=== PATIENT | male | born 1945 | race Caucasian/White ===

== ENCOUNTER → 2020-08-14 | Day surgery (SDC) | payer MEDICARE, OTHER ==
[2020-08-09 11:37] LABS: BASOPHILS # (AUTO) 0.1 (0.0-0.1); BASOPHILS % 0.7 % (0.0-1.0); EOSINOPHILS # (AUTO) 0.2 (0.0-0.4); EOSINOPHILS % 3.2 % (0.0-6.0); HEMATOCRIT 37.9 % (38.2-49.6); HEMOGLOBIN 12.6 g/dL (14.0-18.0); LYMPHOCYTES # (AUTO) 2.1 (1.0-3.2); LYMPHOCYTES % 29.8 % (18.0-39.1); MEAN CORPUSCULAR HEMOGLOBIN 31.6 pg (28-32); MEAN CORPUSCULAR HGB CONC 33.2 g/dL (31-35); MONOCYTES # (AUTO) 0.8 (0.2-0.8); MONOCYTES % 11.1 % (4.4-11.3); NEUTROPHILS # (AUTO) 3.8 (2.1-6.9); NEUTROPHILS % 54.9 % (38.7-80.0); PLATELET COUNT 219 x10e3/uL (140-360); RED BLOOD COUNT 3.99 x10e6/uL (4.3-5.7); RED CELL DISTRIBUTION WIDTH 12.7 % (11.7-14.4)
[2020-08-09 12:17] LABS: ALANINE AMINOTRANSFERASE 24 IU/L (0-55); ALBUMIN 4.1 g/dL (3.5-5.0); ALBUMIN/GLOBULIN RATIO 1.6 (0.8-2.0); ALKALINE PHOSPHATASE 57 IU/L (40-150); ANION GAP 12.5 mmol/L (8-16); BLOOD UREA NITROGEN 25 mg/dL (7-26); BUN/CREATININE RATIO 22 (6-25); CALCIUM 9.2 mg/dL (8.4-10.2); CARBON DIOXIDE 24 mmol/L (22-29); CHLORIDE 109 mmol/L (98-107); CREATININE, SERUM 1.12 mg/dL (0.72-1.25); EST GLOMERULAR FILTRATION RATE > 60 ML/MIN (60-); GLUCOSE 94 mg/dL (74-118); POTASSIUM 4.5 mmol/L (3.5-5.1); SODIUM 141 mmol/L (136-145)
[~2020-08-14] VITALS: Ht 180.3 cm; Wt 81.6 kg
[2020-08-14] VITALS (7 sets, daily range): BP systolic 100–116; BP diastolic 63–80
[~2020-08-14] MED LIST: ALPRAZOLAM 0.5 MG TAB ONE; AREDS 2 PO; ASPIRIN EC81 MG PO; DIPHENHYDRAMINE HCL 25 MG CAP ONE; FENTANYL CITRATE/PF 100MCG/2 ML INJ ONE; FOSAMAX70 MG PO; HEPARIN SOD (PORCINE) 1000 UNIT/ML 30ML ONE; HEPARIN SOD/SOD CHLORIDE 2,000 ML ONE; IOPAMIDOL 370 MG/ML 200 ML INFUS..BTL INJ ONE; LIDOCAINE HCL 2% LOCAL 20 ML VIAL ONE; LIPITOR10 MG PO; LORATADINE10 MG PO; LOSARTAN POTASS25 MG PO; MIDAZOLAM HCL 2 MG/2 ML VIAL ONE; OYSTER SHELL C1 EA12 PO; SODIUM CHLORIDE 0.9% 1000ML 1,000 ML ONE; VERAPAMIL HCL 2.5 MG/ML 2 ML VIAL ONE
--- NOTE | 2020-08-14 14:34 | Operative Report ---
DATE OF PROCEDURE: 08/14/2020 SURGEON: Jose Luis Grant MD INDICATIONS: Coronary artery disease, angina, abnormal stress test. PROCEDURES PERFORMED: 1. Ultrasound-guided access in the right radial artery with sheath placement. 2. Left heart catheterization, selective coronary angiography. 3. Conscious sedation, 35 minutes. 4. Deployment of right wrist TR band. COMPLICATIONS: None. BLOOD LOSS: Minimal. RECOMMENDATIONS: Medical therapy for moderate coronary artery disease. DESCRIPTION OF PROCEDURE: Access was obtained in the right radial artery with ultrasound guidance. A 5-Portuguese sheath was placed. Coronary angiography demonstrated moderate 30% to 50% stenosis in the right coronary artery, left coronary system, and diffuse 10% to 20% luminal irregularities. LV end-diastolic pressure was normal. No intervention deemed necessary. Right wrist TR band applied. The patient discharged home same day. Jose Luis Grant MD [facility] /[id number]
== END | disposition home or self-care (01) ==
LOC: CATH LAB 11:13
PROVIDERS: ATTEND Internal Medicine Interventional Cardiology
DX: I25.118 Atherosclerotic heart disease of native coronary artery with other forms of angina pectoris (principal); R94.39 Abnormal result of other cardiovascular function study; I10 Essential (primary) hypertension; R55 Syncope and collapse; Z01.812 Encounter for preprocedural laboratory examination; Z11.59 Encounter for screening for other viral diseases; Z79.82 Long term (current) use of aspirin
CPT/HCPCS: 36415; 76937; 80053; 85025; 93454; C1769 ×2; C1887; J1644; J2001; J2250; J3010; J7030; Q9967; U0002; 99152